=== PATIENT | female | born 1985 | race Caucasian/White ===

== ENCOUNTER 2023-09-29 02:13 | Inpatient (IN) | payer MEDICAID ==
[~2023-09-29] VITALS: Ht 165.1 cm; Wt 68.0 kg
[2023-09-29 02:21] VITALS: BP 120/67; PULSE 68; RESP 18; TEMP 97.7
[2023-09-29] MEDS ORDERED: NALBUPHINE 10 MG/ML AMP IVP PRN (02:45)
[2023-09-29] MEDS ORDERED: CARBOPROST 250 MCG/ML AMP IM PRN (02:45)
[2023-09-29] MEDS ORDERED: METHYLERGONOVINE 0.2 MG/ML AMP IM PRN ×2 (02:45→04:50)
[2023-09-29] MEDS ORDERED: ONDANSETRON 4 MG/2 ML VIAL IVP PRN (02:45)
[2023-09-29] MEDS ORDERED: AMPICILLIN 2,000 MG in NACL 0.9% MINI-BAG PLUS 100 ML IV SCH (02:45)
[2023-09-29] MEDS ORDERED: OXYTOCIN 10 UNITS/ML VIAL ONE (02:47)
[2023-09-29 03:32] LABS: BASOPHILS % (AUTO) 0.2 % (0.0-2.0); EOSINOPHILS % (AUTO) 0.1 % (0.0-4.0); HEMATOCRIT 39.4 % (36-48); HEMOGLOBIN 13.7 g/dL (12.0-16.0); LYMPHOCYTES # (AUTO) 2.4 K/uL (2.5-16.5); LYMPHOCYTES % (AUTO) 12.7 % (20.5-51.1); MEAN CORPUSCULAR HEMOGLOBIN 34 pg (27-31); MEAN CORPUSCULAR HGB CONC 35 g/dL (33-37); MEAN CORPUSCULAR VOLUME 98.4 fL (80-94); MONOCYTES # (AUTO) 1.1 K/uL (0.8-1.0); MONOCYTES % (AUTO) 5.9 % (1.7-9.3); NEUTROPHILS # (AUTO) 15.3 K/uL (1.8-7.7); NEUTROPHILS % (AUTO) 81.1 % (42.2-75.2); PLATELET COUNT (AUTO) 222 K/uL (140-450); RED BLOOD CELL COUNT(AUTO) 4.01 MIL/uL (4.20-5.40); RED CELL DISTRIBUTION WIDTH 12.8 % (11.6-13.7); WHITE BLOOD COUNT (AUTO) 18.9 K/uL (4.8-10.8)
[2023-09-29 03:45] LABS: INR 0.88 (0.8-1.2); PARTIAL THROMBOPLASTIN TIME 24.1 secs (22-35.6); PROTHROMBIN TIME 9.3 secs (10.8-13.4)
[2023-09-29] MEDS ORDERED: AMPICILLIN 1,000 MG in NACL 0.9% MINI-BAG PLUS 50 ML IV SCH (04:00)
[2023-09-29 04:04] LABS: ALBUMIN 2.3 g/dL (3.4-5.0); ANION GAP 17.6 (8-16); CALCIUM 8.6 mg/dL (8.5-10.1); CARBON DIOXIDE 21.8 mmol/L (21-32); CREATININE 0.6 mg/dL (0.6-1.3); POTASSIUM 3.4 mmol/L (3.5-5.1); TOTAL BILIRUBIN 0.1 mg/dL (0.0-1.0); TOTAL PROTEIN, SERUM 6.8 g/dL (6.4-8.2)
[2023-09-29 04:08] LABS: APPEARANCE,URINE CLEAR (CLEAR); BILIRUBIN,URINE NEGATIVE (NEGATIVE); BLOOD, URINE TRACE-I (NEGATIVE); COLOR,URINE YELLOW (YELLOW); LEUKOCYTE ESTERASE ,URINE TRACE (NEGATIVE); NITRITE, URINE NEGATIVE (NEGATIVE); PH,URINE 6.5 (5.0-9.0); PROTEIN,URINE NEGATIVE (NEGATIVE); UGLUCOSE NEGATIVE (NEGATIVE); UROBILINOGEN,URINE 0.2 EU/dL (0.2 - 1)
[2023-09-29 04:33] LABS: BACTERIA,URINE 2+ /HPF (None Seen); RBC,URINE 0-5 /HPF (0-5); URINE AMORPHOUS URATE 1+ /HPF (None Seen); WBC,URINE 0-5 /HPF (0-5)
[2023-09-29] MEDS ORDERED: TEMAZEPAM 15 MG CAP PO PRN (04:50)
[2023-09-29] MEDS ORDERED: OXYTOCIN 10 UNITS/ML VIAL IM PRN (04:50)
[2023-09-29] MEDS ORDERED: HYDROcodone/APAP 5/325 MG 1 TAB TAB PO PRN (04:50)
[2023-09-29] MEDS ORDERED: METHYLERGONOVINE 0.2 MG TAB PO PRN (04:50)
[2023-09-29] MEDS ORDERED: oxyCODONE/APAP 5/325 MG 1 TAB TAB PO PRN (04:50)
[2023-09-29] MEDS ORDERED: MEASLES, MUMPS, AND RUBELLA 1 VIAL SQVAC ONE (04:50)
[2023-09-29] MEDS: AMPICILLIN 2,000 MG VIAL ONE (05:00)
[2023-09-29] MEDS: LACTATED RINGERS 1,000 ML IV SCH (05:01)
[2023-09-29] MEDS: OXYTOCIN IV SCH (05:03)
[2023-09-29] MEDS: DEXTROSE 5% IV SCH (05:03)
[2023-09-29] MEDS: OXYTOCIN 10 UNITS/ML VIAL ONE (05:03)
[2023-09-29] MEDS: DOCUSATE SOD/SENNA 50/8.6 MG 1 TAB PO SCH (21:01)
[2023-09-30] MEDS: FLU VACCINE QS2023-24 0.5 ML SYR IMVAC ONE (04:06)
[2023-09-30] MEDS: IBUPROFEN 800 MG TAB PO PRN (04:14)
[2023-09-30 06:13] LABS: HEMATOCRIT 38.8 % (36-48); HEMOGLOBIN 13.7 g/dL (12.0-16.0)
== END 2023-10-01 15:10 | disposition home or self-care (01) | DRG 560 ==
LOC: MLD 02:13 → MFCC 05:12
PROVIDERS: ADMIT Obstetrics & Gynecology; ATTEND Obstetrics & Gynecology
PROC: 10E0XZZ Delivery of Products of Conception, External Approach (ICD-10-PCS; principal; 2023-09-29)
PROC: 3E0234Z Introduction of Serum, Toxoid and Vaccine into Muscle, Percutaneous Approach (ICD-10-PCS; 2023-09-29)
DX: O60.14X0 Preterm labor third trimester with preterm delivery third trimester, not applicable or unspecified (principal); Z37.0 Single live birth; Z20.822 Contact with and (suspected) exposure to COVID-19; Z3A.33 33 weeks gestation of pregnancy
CPT/HCPCS: 36415; 80053; 81001; 85018; 85025; 85610; 85730; 86592; 86762; 86886; 86900; 86901; 87086; 87340; 87653-90; 90715; J0290; J2590; J7060; J7120